=== PATIENT | female | born 1960 | race Caucasian/White ===

== ENCOUNTER 2025-06-03 13:45 | Emergency (ER) | payer MEDICAID, SELFPAY ==
[2025-06-03] VITALS (17 sets, daily range): BP systolic 145–206; BP diastolic 78–88; PULSE 69–88; RESP 18; TEMP 36.7; O2SAT 94–100
--- NOTE | 2025-06-03 15:15 | DI.CT_ITS ---
Exam(s) CT HEAD WO EXAM: CT HEAD WO CLINICAL HISTORY: fall, right temporal injury, laceration. TECHNIQUE: Imaging Protocol: Axial computed tomography images with coronal and sagittal reformatted images were created and reviewed COMPARISON: No exams were available for comparison FINDINGS: There is some gas in subcutaneous tissues of the right temporal region but no radiopaque foreign body in there are no skull fractures. There is no fluid in the visualized paranasal sinuses. There is no evidence of intracranial hemorrhage, mass effect, or shift of midline structures. There are no extra-axial fluid collections. The ventricles are not enlarged or shifted and there is no blood within the ventricular system nor within the basal cisterns. There is some mild bilateral periventricular hypodensity around the frontal horn of both lateral ventricles. In addition, there is some abnormal hypodensity in the external capsule on the right side measuring 8 by 8 mm, also probably post ischemic change. Some mild calcifications noted in the medial right basal ganglia. IMPRESSION: Right temporal region scalp laceration. No skull fractures. No evidence of intracranial hemorrhage. Chronic small-vessel white matter ischemic changes. There is also an asymmetric area of white matter hypodensity measuring 8 x 8 in the right external capsule on the right side is probably consistent with chronic small vessel ischemic changes. If clinically indicated follow-up MRI with diffusion imaging can be performed. Report called by myself to ER on 06/03/2025 at 4:18 p.m. RADIATION DOSE DELIVERED: 782.84mGy.cm Total DLP DATA REPOSITORY: All CT scans at this facility are submitted to the National Radiology Data Registry (NRDR) Dose Index Registry (DIR) with the [employer] ([employer]). RADIATION OPTIMIZATION: All CT scans at this facility use at least one of these dose optimization techniques: automated exposure control; mA and/or kV adjustment per patient size (includes targeted exams where dose is matched to clinical indication); or iterative reconstruction.
--- NOTE | 2025-06-03 15:15 | DI.RAD_ITS ---
Exam(s) XR SHOULDER RT COMPLETE 2+V EXAM: XR SHOULDER RT COMPLETE 2+V CLINICAL HISTORY: fall, right shoulder pain. TECHNIQUE: 2D digital imaging was performed. COMPARISON: No exams were available for comparison FINDINGS: Four views There is no evidence of fracture nor significant dislocation of the glenohumeral joint. There appears to be a probable fracture in the lateral 3rd of the ipsilateral clavicle. There is no distraction of the AC joint. IMPRESSION: There appears to be a fracture in the lateral 3rd of the right clavicle. DATA REPOSITORY: RADIATION DOSE DELIVERED:
--- NOTE | 2025-06-03 15:15 | DI.RAD_ITS ---
Exam(s) XR HUMERUS RT EXAM: XR HUMERUS RT CLINICAL HISTORY: fall, shoulder and arm pain. TECHNIQUE: 2D digital imaging was performed. COMPARISON: CR XR CHEST 1V IN DI DEPT from 06/03/2025 FINDINGS: Two views There is no evidence of fracture the right humerus. Bone density is age- appropriate in the humerus and there are no osseous lesions. Also no dislocation. There is a fracture in the lateral 3rd of the right clavicle. The AC joint is not distracted. Subacromial space is not diminished. IMPRESSION: There is fracture in the lateral 3rd of the right clavicle. DATA REPOSITORY: RADIATION DOSE DELIVERED:
--- NOTE | 2025-06-03 15:20 | DI.RAD_ITS ---
Exam(s) XR CHEST 1V IN DI DEPT EXAM: XR CHEST 1V IN DI DEPT CLINICAL HISTORY: right anterior chest wall tender, post fall. TECHNIQUE: 2D digital imaging was performed. COMPARISON: No exams were available for comparison FINDINGS: Single AP portable view. Heart size is upper normal. The mediastinum is not widened. Lungs are clear. No infiltrates nor obvious pleural effusions. IMPRESSION: No acute pulmonary findings on this single AP portable view of the chest. DATA REPOSITORY: RADIATION DOSE DELIVERED:
--- NOTE | 2025-06-03 15:30 | RT.EKG_ITS ---
APPROVED REPORT Exam: Resting ECG Reason for Exam: anterior chest wall pain Patient Location: E HR:71 bpm ECG Measurements Heart Rate 71 AXIS VT 157 P 77 QRSd 100 QRS 189 QT 390 T 22 QTc 426 Conclusion Sinus rhythm...normal P axis, V-rate 60- 99 Right axis deviation...QRS axis ( 91,269) sinus rhythm, normal axis, non ischemic
[2025-06-03] MEDS: Diph,Pertuss(Acell),Tet Vac/Pf 0.5 ML SYR IM (15:36)
[2025-06-03] MEDS: ACETAMINOPHEN 1,000 MG/100 ML BAG 400 MG IVPB (15:36)
--- NOTE | 2025-06-03 15:36 | W.ED.GENAD ---
Discharge Plan Disposition Patient Disposition: Home Condition: Improving Discharge Details Clinical Impression: Clavicle fracture, Facial laceration Primary Care Provider: None,None ED Provider: Tino Gutierrez Home Meds and New Rx's Prescriptions: New cephalexin 500 mg capsule 500 mg PO TID 5 Days Qty: 15 0RF Discharge Instructions Instructions: Clavicle fracture, Laceration Repair With Stitches ED Additional Instructions: Please follow-up with orthopedic director medical surgical. Please keep wound clean and dry. Return to the emergency department for any worsening symptoms HPI General Date/Time Provider Initiated Documentation: 06/03/25 13:54. HPI Narrative: 64-year-old female presents after fall, was pulled to the ground by a large dog, she was holding the dog's leash when it lunged forward, fell on her right side, hitting the right side of her head and her right shoulder, no loss of consciousness, patient denies blood thinner use, patient has large laceration to temporal scalp, also has pain to right shoulder, patient also endorsing anterior chest wall muscular discomfort, no shortness of breath no abdominal pain no back pain Related Data Home Medications ?Medication ?Instructions ?Recorded ?Confirmed cephalexin 500 mg capsule 500 mg PO TID 5 days #15 caps 06/03/25 Previous Rx's ?Medication ?Instructions ?Recorded cephalexin 500 mg capsule 500 mg PO TID 5 days #15 caps 06/03/25 Allergies Allergy/AdvReac Type Severity Reaction Status Date / Time acetaminophen (From Percocet) AdvReac Intermediate Nausea Verified 06/03/25 13:52 aspirin AdvReac Intermediate Other (See Verified 06/03/25 13:52 Comment) oxycodone (From Percocet) AdvReac Intermediate Nausea Verified 06/03/25 13:52 General Stated Complaint: Trauma SARAVANAN: 3 Exam Narrative Exam Narrative: General: alert, no acute distress HEENT: normocephalic, atraumatic, neck supple, pupils equal round reactive to light, moist mucous membranes, tolerating secretions, normal voice, no rhinorrhea or otorrhea Respiratory: normal respiratory effort, lungs clear bilaterally, no wheezes rales or rhonchi Chest: Some tenderness to palpation right anterior chest no crepitus no deformity no abrasion no ecchymosis, patient has normal chest wall excursion no paroxysmal motion Cardiac: regular rate and rhythm, no murmurs rubs or gallops; equal pulses bilaterally, warm well perfused Abdominal: soft, nontender, nondistended; no organomegaly or palpable masses MSK: Holding right shoulder adducted to side, range of motion elbow wrist fingers intact, median radial and ulnar sensory and motor function intact, patient is superficial abrasion of her right shoulder Back: Normal alignment, no midline spinal tenderness step-off crepitus or deformity Skin: warm, dry, no rashes; 6 cm linear laceration to right temporal scalp just posterior and lateral to orbit Neuro: AAOx3, CN II-XII intact, 5/5 strength bilateral upper and lower extremities, normal speech, no ataxia Psych: normal mood, normal affect, calm, cooperative Course Vital Signs Vital signs: Vital Signs Temperature 36.7 C 06/03/25 13:47 Pulse 79 06/03/25 13:47 Respiratory Rate 18 06/03/25 13:47 Blood Pressure 145/79 H 06/03/25 13:47 Pulse Oximetry 95 06/03/25 13:47 Temperature 36.7 C 06/03/25 13:47 Pulse 88 06/03/25 14:58 Respiratory Rate 18 06/03/25 14:58 Respiratory Effort Normal, Non-Labored 06/03/25 14:58 Respiratory Depth Normal 06/03/25 14:58 Respiratory Pattern Normal 06/03/25 14:58 Blood Pressure 163/84 H 06/03/25 14:58 Blood Pressure Mean 110 06/03/25 14:58 Pulse Oximetry 98 06/03/25 14:58 Oxygen Delivery Method Room Air 06/03/25 14:58 Oxygen Flow Rate 0 06/03/25 14:58 Pain Level 8 06/03/25 14:58 Procedure Laceration Laceration 1: Date of Procedure: 06/03/25 Time of procedure: 17:21 Provider that performed the procedure: Tino Ac Time Out Performed: Yes Patient Consented: Verbally Site: face Side (If applicable): right Description: linear Depth: involves muscle layer Local anesthetic: LET(lidocaine epinephrine tetracaine) Pre-repair:: wound explored, irrigated extensively and deep structures intact Skin layer closed with: vicryl Suture size: 5-0 Number of sutures:: 6 Technique: simple, interrupted Medical Decision Making 64-year-old female presents after fall pulled over by a dog while holding onto its leash, laceration to right temporal scalp as well as contusion and abrasion pain to right shoulder and muscular tenderness to right anterior wall, hemodynamically stable airway breathing and circulation intact GCS of 15, no anticoagulation use, large laceration hemostatic no foreign body, will apply L ET gel for local anesthesia, will irrigate extensively will update Tdap, will obtain x-ray chest x-ray shoulder x-ray humerus CT head basic labs patient endorses the only analgesia that she can take is acetaminophen. Consider contusion lower special for intracranial hemorrhage or skull fracture high clinical suspicion for right proximal humerus fracture versus dislocation chest wall discomfort likely contusion lower suspicion for pneumothorax low suspicion for ACS PE or aortic pathology given history and physical. Disposition pending results and reassessment 17: 19 patient was comfortably hemodynamically stable. CT showing chronic age-related changes no acute intracranial hemorrhage. X-rays consistent with lateral right clavicular fracture. Patient placed in sling. Limb neurovascularly intact. Wound anesthetized with LAT gel, irrigated extensively, no foreign bodies appreciated, wound is hemostatic, closed with 6 simple interrupted 5-0 Vicryl sutures. Patient given empiric prophylactic dose of cephalexin given nature of wound. PFSH All Active Problems (Updated 06/03/25 @ 17:23 by Tino Gutierrez MD) Facial laceration (Acute) Clavicle fracture (Acute) Social History Smoking/Tobacco Use Status: Never Smoking risk assessment performed?: Yes Alcohol Intake: current Alcohol Intake frequency: 0-2 drinks per day Drug use: Daily Substance use type: marijuana Details: Uses marijuana at night for sleep PAWSS Have you Been Recently Intoxicated or Drunk Within the Last 30 days?: No Have you Ever Experienced Previous Episodes of Alcohol Withdrawal?: No Have you ever Experienced Withdrawal Seizures?: No Have you ever Experienced Delirium Tremens(DT)s?: No Have you ever undergone Alcohol Rehabilitation Treatment (i.e, inpt ot outpatient treatment programs)?: No Have you ever Experienced Blackouts?: No Have you ever Combined Alcohol with other Downers within the last 90 days?: No Have you ever Combined Alcohol with any other Substance of Abuse during the last 90 days?: No Result: 0
[2025-06-03 15:47] LABS: Abs Immature Grans 0.08 10^3/uL (0.0-0.06); HCT 42.8 % (36.0-46.0); HGB 14.5 g/dL (11.2-15.7); Immature Grans % 0.5 %; MCH 30.7 pg (27.0-33.0); MCHC 33.9 % (32.0-36.0); MCV 91 fL (80-95); MPV 10.0 fL (8.0-11.0); Platelet Count 346 10^3/uL (130-400); RBC 4.72 10^6/uL (3.93-5.22); RDW 12.6 % (11.7-14.6); RDW-SD 42.0 fL; WBC 16.71 10^3/uL (4.4-10.8)
[2025-06-03] MEDS: Lidocaine/Epinephri/Tetracaine Topical Gel 3 ML TP (15:56)
[2025-06-03 16:03] LABS: INR 1.0 (0.9-1.1); PTT Activated 25.9 sec (20.6-30.2); Prothrombin Time 9.9 sec (9.1-11.1)
[2025-06-03 16:18] LABS: ALT 30 U/L (14-59); AST 21 U/L (15-37); Albumin 4.6 g/dL (3.4-5.0); Alkaline Phosphatase 85 U/L (46-116); Anion Gap 10.8 mmol/L (3-11); BUN 7 mg/dL (7-18); Bilirubin, Total 0.3 mg/dL (0.2-1.0); CO2 27.2 mmol/L (21.0-32.0); Calcium 9.6 mg/dL (8.5-10.1); Chloride 100 mmol/L (98-107); Estimated GFR 70.51 (mL/min/1.73m2); Glucose 99 mg/dL (74-106); Potassium 3.4 mmol/L (3.5-5.1); Sodium 138 mmol/L (136-145); Total Protein 8.4 g/dL (6.4-8.2)
[2025-06-03] MEDS: Cephalexin 500 MG CAP PO (17:24)
== END 2025-06-03 17:32 | disposition home or self-care (01) ==
PROVIDERS: Emergency Provider Emergency Medicine
DX: S42.035A Nondisplaced fracture of lateral end of left clavicle, initial encounter for closed fracture (principal); S01.01XA Laceration without foreign body of scalp, initial encounter; Z23 Encounter for immunization; W18.39XA Other fall on same level, initial encounter; Y93.K1 Activity, walking an animal; Y92.89 Other specified places as the place of occurrence of the external cause
CPT/HCPCS: 12002; 80053; 90471; 90715; 93005; 96365; 96366; 99285; 70450; 71045; 73030; 73060; 85025; 85610; 85730; 93010; 99284; J0131